=== PATIENT | male | born 2000 | race Caucasian/White ===

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

== ENCOUNTER 2021-02-18 12:27 | Emergency (ER) | payer OTHER, SELFPAY ==
[2021-02-18 12:47] VITALS: BP 122/81; PULSE 63; RESP 12; TEMP 36.8; O2SAT 100
--- NOTE | 2021-02-18 13:04 | ED.DENTAL ---
HPI - Dental/Oral General Chief complaint: Dental/Oral Stated complaint: absess tooth Time Seen by Provider: 02/18/21 13:04 Source: patient, RN notes reviewed and old records reviewed Mode of arrival: ambulatory Limitations: no limitations History of Present Illness HPI Narrative: 20-year-old male who presents to [facility] with complaints of dental pain to the right lower#30 molar on the lower jaw. He states that he has been on antibiotic of Amoxicillin for the past month intermittently for an abscess on the left side of his mouth which has improved. On Thursday patient states that he started having dental pain to gum around #30 tooth on the right lower jaw with swelling. Patient has numerous caries of his teeth with teeth broken and gingivitis, he denies any past history or present history of illicit drug use states he just didn't brush his teeth when he was a kid. Patient has caps to his front upper teeth. MD Complaint: tooth pain Location: Tooth # (#30) Onset (ago): week(s) Duration: constant Severity: moderate Exacerbating factors: chewing Context: history of dental caries and poor dental care Associated symptoms: gum swelling Treatment prior to arrival: other (Tylenol) Related Data Allergies Allergy/AdvReac Type Severity Reaction Status Date / Time No Known Allergies Allergy Verified 12/09/20 11:49 Review of Systems Review of Systems: Narrative: CONSTITUTIONAL: Denies fever, chills, or sweats. EYES: Denies visual changes, redness, or discharge. ENT: Denies rhinorrhea, congestion, sore throat, or otalgia.dental pain with swelling to gum around #30 tooth which is broken off also close to gum line. CARDIOVASCULAR: Denies chest pain, palpitations, or edema. RESPIRATORY: Denies cough or dyspnea. GASTROINTESTINAL: Denies abdominal pain, nausea, vomiting, or diarrhea. GENITOURINARY: Denies dysuria or hematuria. SKIN: Denies rash or itching. MUSCULOSKELETAL: Denies back pain, joint pain, or myalgia. NEUROLOGIC: Denies headache, numbness, or weakness. PSYCHIATRIC: Denies anxiety or depression. All systems reviewed & are unremarkable except as noted in HPI and below PMFSH Past Medical History Medical History (Updated 02/21/21 @ 08:12 by Chinyere Singh NP) ADHD Anxiety Epistaxis Finger fracture, right 5th Surgical History Surgical History No history of previous surgery Family History Family History (Updated 02/21/21 @ 08:07 by Chinyere Singh NP) Other No significant family history Social History Social History (Updated 02/18/21 @ 17:58 by Chinyere Singh NP) Smoking status: Current some day smoker Tobacco type: cigarettes Second hand tobacco smoke exposure: No Alcohol intake: never Alcohol use details: denies Substance use: never Last use: denies use Living arrangements: with family Gender identity (if verbalized by the patient): Male Comments At time of signature, agree with nursing past medical, surgical, social and family history. There is no relevant family history pertinent to the presenting complaint Exam Narrative: Exam Narrative: GENERAL: Well-appearing, well-nourished, and in no acute distress. HEAD: Normocephalic, atraumatic. EYES: PERRLA and EOMI. ENT: Nares clear, no rhinorrhea or epistaxis. Mucous membranes moist.TM's normal with good light reflex, throat pink with no lesions or exudates,no tonsil swelling.Pain swelling to #30 tooth which is broken off close to gum line with numerous caries to other teeth noted also and gingivitis. no drainage noted. NECK: Supple.no lymphadenopathy, no Yoni angina CHEST: Clear to auscultation. No respiratory distress.SAO2 100% on room air HEART: Regular rate and rhythm. No murmur heard. Normal peripheral pulses. ABDOMEN: Soft, nontender, nondistended, normal active bowel sounds. EXTREMITIES: Normal range of motion. No edema. SKIN: Warm, dry, no rash. NEURO: No focal deficit
== END 2021-02-18 13:28 | disposition home or self-care (01) ==
PROVIDERS: Emergency Provider Registered Nurse; PCP Family Medicine Adolescent Medicine
DX: K04.7 Periapical abscess without sinus (principal); K02.9 Dental caries, unspecified; F17.210 Nicotine dependence, cigarettes, uncomplicated
CPT/HCPCS: 99213; G0463

== ENCOUNTER 2022-06-14 18:16 | Emergency (ER) | payer OTHER, SELFPAY ==
--- NOTE | ~2022-06-14 | XR_ITS ---
EXAMINATION: XR chest 2V Exam Date/Time: 06/14/2022 18:40 CDT HISTORY: bone pain decreased breath sounds Comparison: 11/16/2019. RESULT: Lines, tubes, and devices: None. Lungs and pleura: Clear. Cardiomediastinal silhouette: Stable. Other: No acute osseous or upper abdominal finding. IMPRESSION: No acute cardiopulmonary process. Reviewed, dictated and finalized at location K.
[2022-06-14 18:33] VITALS: BP 128/89; PULSE 76; RESP 16; TEMP 36.6; O2SAT 98
--- NOTE | 2022-06-14 18:37 | ED.BACK ---
HPI - Back Pain/Injury General Chief Complaint: Back Pain/Injury Stated Complaint: back pain Time Seen by Provider: 06/14/22 18:29 History of Present Illness HPI Narrative: 21-year-old male here for evaluation of left sided back pain for the past 5 weeks. Patient states the pain came on while he was at work and bent over under a car. Since then the pain has been intermittent in nature, worse with certain positions. He saw his primary care provider who prescribed him an anti-inflammatory with good relief. Patient after taking this medication and states the pain came back. He notes it feels like a bony pain and is possibly worse with deep breaths. Denies any chest pain, shortness of breath, cough, fevers or chills, weight loss. He has been able to walk but just notes that it is painful. Related Data Allergies Allergy/AdvReac Type Severity Reaction Status Date / Time No Known Allergies Allergy Verified 06/14/22 18:36 Review of Systems Review of Systems: Gen: Denies fevers or chills Eyes: Denies eye pain or visual change ENT: Denies congestion Respiratory: Denies shortness of breath or cough CV: Denies chest pain or palpitations GI: Denies abdominal pain nausea, emesis or diarrhea : denies burning, urgency, frequency or hematuria Musculoskeletal: Reports back pain. Neuro: Denies numbness, tingling, weakness or focal weakness Skin: Denies rash Except as documented, all other systems reviewed and negative [facility] [place] Past Medical History Medical History (Updated 06/15/22 @ 00:00 by Chelsea Dias) ADHD Anxiety Epistaxis Finger fracture, right 5th Surgical History Surgical History No history of previous surgery Family History Family History Other No significant family history Social History Social History (Updated 05/22/22 @ 15:04 by Kiana Bustos MA) Smoking status: Current some day smoker Tobacco type: e-cigarettes/vaping Second hand tobacco smoke exposure: No Alcohol intake: never Alcohol use details: denies Substance use: never Substance use type: does not use Last use: denies use Gender identity (if verbalized by the patient): Male Spiritual care concerns: No Agree to blood products: Yes Exam Narrative: APPEARANCE: Well appearing, no pain in distress, well-nourished. Head: Normocephalic and atraumatic. EYES: PERRLA/EOMI, conjunctivae clear NOSE: No nasal drainage EARS: External ear normal in appearance THROAT: Oropharynx is clear. Mucous membranes are moist. NECK: Supple. No adenopathy, no masses. RESPIRATORY: Airway patent, respirations nonlabored. Clear to auscultation bilaterally, no rales, rhonchi, wheezing. CARDIOVASCULAR: Regular rate and rhythm without murmurs, rubs, or gallops. ABDOMINAL: Normoactive bowel sounds. Soft, nontender, nondistended. No rebound tenderness or guarding. MUSCULOSKELETAL: No bony tenderness to palpation along midline of C,T, or L spine. No step-offs or deformities. Full range of motion in thorax. Straight leg raise negative bilaterally. Extremities are warm and well-perfused. Moves all extremities well. No edema. NEURO: Normal speech. No focal neurologic deficits. SKIN: Skin is warm and dry. No rashes. PSYCHIATRIC: Normal affect/mood.. Course Vital Signs Vital signs: Vital Signs Temperature 97.8 F 06/14/22 18:33 Pulse Rate 76 06/14/22 18:33 Respiratory Rate 16 06/14/22 18:33 Blood Pressure 128/89 06/14/22 18:33 Pulse Oximetry 98 06/14/22 18:33 Temperature 97.8 F 06/14/22 18:33 Pulse Rate 76 06/14/22 18:33 Respiratory Rate 16 06/14/22 18:33 Blood Pressure 128/89 06/14/22 18:33 Pulse Oximetry 98 06/14/22 18:33 MDM - Back Pain/Injury MDM Narrative Medical decision making narrative: 21-year-old male here for evaluation of left-sided back pain for the past month and
[2022-06-14] MEDS: ACETAMINOPHEN 325 MG TABLET 650 MG PO (19:21)
[2022-06-14] MEDS: IBUPROFEN 600 MG TABLET PO (19:21)
== END 2022-06-14 20:00 | disposition home or self-care (01) ==
PROVIDERS: Emergency Provider Emergency Medicine; PCP Family Medicine Adolescent Medicine
DX: S39.012A Strain of muscle, fascia and tendon of lower back, initial encounter (principal); F17.290 Nicotine dependence, other tobacco product, uncomplicated; X50.9XXA Other and unspecified overexertion or strenuous movements or postures, initial encounter
CPT/HCPCS: 71046; 99283; A9270

== ENCOUNTER 2022-12-16 22:21 | Emergency (ER) | payer OTHER, SELFPAY ==
[2022-12-16 22:35] VITALS: BP 151/96; PULSE 88; RESP 16; TEMP 37.2; O2SAT 100
[2022-12-17 00:38] VITALS: BP 128/87; PULSE 65; RESP 16; TEMP 36.8; O2SAT 100
--- NOTE | 2022-12-17 00:38 | ED.DENTAL ---
HPI - Dental/Oral General Chief complaint: Dental/Oral Stated complaint: dental pain Time Seen by Provider: 12/17/22 00:15 History of Present Illness HPI Narrative: 22-year-old male reports for acute onset right maxillary dental pain that started at 2300. Patient reports he was grinding his teeth when he felt a sudden onset sharp pain radiating from his tooth up into his face. Patient reports history of multiple dental caries and fractured teeth. Patient does not currently have a dentist. Denies fever, body aches, chills. Denies facial swelling, facial redness, difficulty swallowing, trismus. Tolerating secretions Teeth map: 1. Fractured tooth with surrounding gingival erythema and caries. No fluctuation or induration. No periapical abscess. Related Data Allergies Allergy/AdvReac Type Severity Reaction Status Date / Time No Known Allergies Allergy Verified 12/17/22 00:35 Review of Systems Review of Systems: CONSTITUTIONAL: Denies fever, chills EYES: Denies visual changes, redness, or discharge. ENT: Denies rhinorrhea, congestion, sore throat, or otalgia. CARDIOVASCULAR: Denies chest pain, palpitations, or edema. RESPIRATORY: Denies cough or dyspnea. GASTROINTESTINAL: Denies abdominal pain, nausea, vomiting, or diarrhea. GENITOURINARY: Denies dysuria or hematuria. SKIN: Denies rash or itching. MUSCULOSKELETAL: Denies back pain, joint pain, or myalgia. NEUROLOGIC: Denies headache, numbness, dizziness, or weakness. PSYCHIATRIC: Denies anxiety or depression. [facility] Past Medical History Medical History (Updated 12/17/22 @ 00:48 by Paula De Anda PA-C) ADHD Anxiety Epistaxis Finger fracture, right 5th Surgical History Surgical History No history of previous surgery Family History Family History Other No significant family history Social History Social History Smoking status: Current some day smoker Tobacco type: e-cigarettes/vaping Second hand tobacco smoke exposure: No Alcohol intake: never Alcohol use details: denies Substance use: never Substance use type: does not use Last use: denies use Living arrangements: with family Occupation/Education: occupation Gender identity (if verbalized by the patient): Male Spiritual care concerns: No Agree to blood products: Yes Exam Narrative: GENERAL: Well-appearing, well-nourished, and in no acute distress. Patient resting comfortably in the exam chair. HEAD: Normocephalic, atraumatic. EYES: PERRLA and EOMI. ENT: Nares clear, no rhinorrhea or epistaxis. Mucous membranes moist. Oropharynx without tonsillar hypertrophy exudate or other lesions. Multiple dental caries and fractured teeth. Tooth #11 fractured with surrounding gingival erythema and caries. Tenderness overlying gingiva and with palpation of tooth. No fluctuation or induration throughout gingiva, buccal mucosa. no periapical abscess. Floor of mouth soft, no necrosis. No trismus. Tolerating secretions. No overlying skin changes to face. No maxillary or frontal sinus tenderness. NECK: Supple. No adenopathy or masses. No carotid bruits or JVD CHEST: Clear to auscultation. No respiratory distress. No wheezes rales or rhonchi HEART: Regular rate and rhythm. No murmur heard. Normal peripheral pulses. EXTREMITIES: Normal range of motion. No edema. SKIN: Warm, dry, no rash. NEURO: No focal deficits. Alert and oriented x3. PSYCH: Normal mood and affect. Course Course Emergency Course: Offered patient an infraorbital or alveolar nerve block to which she declined. Vital Signs Vital signs: Vital Signs Temperature 98.9 F 12/16/22 22:35 Pulse Rate 88 12/16/22 22:35 Respiratory Rate 16 12/16/22 22:35 Blood Pressure 151/96 H 12/16/22 22:35 Pulse Oximetry 100 12/16/22 22:35 Oxygen Deliv
[2022-12-17] MEDS: HYDROcodone/acetaminophen (*CRX) 10-325 MG TABLET 1 TAB PO (00:48)
[2022-12-17] MEDS: AMOXICILLIN/CLAVULANATE K 875-125 MG TAB 1 TABLET PO (00:50)
== END 2022-12-17 01:33 | disposition home or self-care (01) ==
PROVIDERS: Emergency Provider Physician Assistant; PCP Family Medicine Adolescent Medicine
DX: K03.81 Cracked tooth (principal); K02.9 Dental caries, unspecified; K04.01 Reversible pulpitis; F41.9 Anxiety disorder, unspecified; F90.9 Attention-deficit hyperactivity disorder, unspecified type; F17.290 Nicotine dependence, other tobacco product, uncomplicated
CPT/HCPCS: 99283; A9270

== ENCOUNTER 2023-05-13 18:51 | Emergency (ER) | payer OTHER, BC, SELFPAY ==
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
[2023-05-13 18:57] VITALS: BP 138/94; PULSE 73; RESP 16; TEMP 37.2; O2SAT 100
== END 2023-05-13 19:22 | disposition home or self-care (01) ==
PROVIDERS: Emergency Provider Nurse Practitioner; PCP Family Medicine Adolescent Medicine
DX: R07.89 Other chest pain (principal); V43.52XA Car driver injured in collision with other type car in traffic accident, initial encounter; F41.9 Anxiety disorder, unspecified; F17.290 Nicotine dependence, other tobacco product, uncomplicated
CPT/HCPCS: 99213; G0463

== ENCOUNTER 2024-03-18 11:55 | Emergency (ER) | payer OTHER, BC, SELFPAY ==
[2024-03-18 12:06] VITALS: BP 126/77; PULSE 65; RESP 16; TEMP 37.2; O2SAT 100
--- NOTE | 2024-03-18 12:17 | ED.GENADULT ---
HPI - General Adult General Chief complaint: Extremity Injury, Lower Stated complaint: Right leg pain Time Seen by Provider: 03/18/24 12:17 Related Data Allergies Allergy/AdvReac Type Severity Reaction Status Date / Time sertraline AdvReac Unknown suicidal Verified 10/06/23 08:43 thoughts [facility] Past Medical History Medical History (Updated 03/19/24 @ 00:01 by Chelsea Dias) ADHD Anxiety Epistaxis Finger fracture, right 5th Surgical History Surgical History No history of previous surgery Family History Family History Other No significant family history Social History Social History Smoking status: Current some day smoker Tobacco type: e-cigarettes/vaping Second hand tobacco smoke exposure: No Alcohol intake: never Alcohol use details: denies Substance use: never Substance use type: does not use Last use: denies use Lack of Transportation: No Lack of Food: Never True Current Housing: I Have Housing Concerned About Future Housing: No Difficulty Paying Gas/Electric Bills: No Difficulty Paying for Meds: No Currently Unemployed: No Education: High School Diploma/GED Difficulty w/ Childcare or Family Care: No Living arrangements: with family Occupation/Education: occupation Gender identity (if verbalized by the patient): Male Spiritual care concerns: No Agree to blood products: Yes Course Vital Signs Vital signs: Vital Signs Temperature 98.9 F 03/18/24 12:06 Pulse Rate 65 03/18/24 12:06 Respiratory Rate 16 03/18/24 12:06 Blood Pressure 126/77 03/18/24 12:06 Pulse Oximetry 100 03/18/24 12:06 Oxygen Delivery Room Air 03/18/24 12:06 Temperature 98.9 F 03/18/24 12:06 Pulse Rate 65 03/18/24 12:06 Respiratory Rate 16 03/18/24 12:06 Blood Pressure 126/77 03/18/24 12:06 Pulse Oximetry 100 03/18/24 12:06 Oxygen Delivery Room Air 03/18/24 12:06 Medical Decision Making Vital Signs Vital Signs: Vital Signs Temperature 98.9 F 03/18/24 12:06 Pulse Rate 65 03/18/24 12:06 Respiratory Rate 16 03/18/24 12:06 Blood Pressure 126/77 03/18/24 12:06 Pulse Oximetry 100 03/18/24 12:06 Oxygen Delivery Room Air 03/18/24 12:06 Temperature 98.9 F 03/18/24 12:06 Pulse Rate 65 03/18/24 12:06 Respiratory Rate 16 03/18/24 12:06 Blood Pressure 126/77 03/18/24 12:06 Pulse Oximetry 100 03/18/24 12:06 Oxygen Delivery Room Air 03/18/24 12:06 Discharge Plan Discharge Clinical Impression: Strain of muscle of posterior right lower leg Patient Disposition: Home, Self-Care Instructions: Muscle Strain (DC) Additional Instructions: for new or worsening symptoms go directly to the emergency department Patient Language: Slovenian Prescriptions: No Action hydroxyzine HCl 25 mg tablet 25 mg PO TID PRN (Reason: anxiety) Qty: 30 0RF venlafaxine 150 mg capsule,extended release 24hr 150 mg PO DAILY Qty: 90 1RF Follow-up/Referrals: Dino Grubbs MD [Primary Care Provider] - Stand Alone Forms: Work/School Release IP
--- NOTE | 2024-03-24 10:11 | ED.GENADULT ---
HPI - General Adult General Chief complaint: Extremity Injury, Lower Stated complaint: Right leg pain Time Seen by Provider: 03/18/24 12:17 Source: patient, RN notes reviewed and old records reviewed Mode of arrival: ambulatory Limitations: no limitations History of Present Illness HPI narrative: 23-year-old male to Express Care for complaint right calf pain for 3 days. Patient endorses skateboarding 3 without injury. Patient is concerned that he may a muscle. Patient endorses increased tension and discomfort with flexion. Patient denies prior injury, pertinent medical history, numbness, tingling. Patient endorses increased discomfort with activity, decreases at rest. Patient has not attempted to treat at home. Related Data Allergies Allergy/AdvReac Type Severity Reaction Status Date / Time sertraline AdvReac Unknown suicidal Verified 10/06/23 08:43 thoughts Review of Systems Review of Systems: All systems reviewed & are unremarkable except as noted in HPI and below Constitutional: Constitutional: Reports no additional constitutional complaints Eyes: Eyes: Reports no additional eye complaints ENT: Reports system reviewed and no additional complaints, except as documented Cardiovascular: Cardiovascular: Reports no additional cardiovascular complaints, Denies chest pain and Denies dyspnea Respiratory: Respiratory: Reports no additional respiratory complaints, Denies cough and Denies dyspnea Musculoskeletal: Musculoskeletal: Reports as per HPI and Reports other ( right calf pain) Neurologic: Reports system reviewed and no additional complaints, except as documented Psychiatric: Psychiatric: Reports no additional psychiatric complaints PMFSH Past Medical History Medical History ADHD Anxiety Epistaxis Finger fracture, right 5th Surgical History Surgical History No history of previous surgery Family History Family History Other No significant family history Social History Social History Smoking status: Current some day smoker Tobacco type: e-cigarettes/vaping Second hand tobacco smoke exposure: No Alcohol intake: never Alcohol use details: denies Substance use: never Substance use type: does not use Last use: denies use Lack of Transportation: No Lack of Food: Never True Current Housing: I Have Housing Concerned About Future Housing: No Difficulty Paying Gas/Electric Bills: No Difficulty Paying for Meds: No Currently Unemployed: No Education: High School Diploma/GED Difficulty w/ Childcare or Family Care: No Living arrangements: with family Occupation/Education: occupation Gender identity (if verbalized by the patient): Male Spiritual care concerns: No Agree to blood products: Yes Comments At the time of my signature, I reviewed and agree with the nursing past medical, surgical, social, and family history. There is no relevant family history pertinent to the patient complaint. Exam Const: General: cooperative, healthy appearing, comfortable, no acute distress, alert and well nourished Nutritional Appearance: well nourished Orientation/consciousness: patient oriented x3 Limitations: no limitations HENMT: Head: normal to inspection Ears: external ears normal Face/Nose/Sinus: Normal external nose present, Normal nares present, normal facial exam, No erythema and No edema Face and sinus: normal facial exam, no erythema and no edema Mouth: Yes Normal oral and palatal mucosa present Eyes: General: appearance normal, both eyes and all related structures Neck: Neck: normal visual inspection, full ROM and no meningeal signs Chest: Chest palpation & inspection: normal inspection of the chest Resp: [facility]
== END 2024-03-18 12:37 | disposition home or self-care (01) ==
PROVIDERS: Emergency Provider Nurse Practitioner Family; PCP Family Medicine Adolescent Medicine
DX: S86.111A Strain of other muscle(s) and tendon(s) of posterior muscle group at lower leg level, right leg, initial encounter (principal); X58.XXXA Exposure to other specified factors, initial encounter; F17.290 Nicotine dependence, other tobacco product, uncomplicated
CPT/HCPCS: 99212; G0463

== ENCOUNTER 2024-06-16 11:38 | Emergency (ER) | payer SELFPAY ==
[2024-06-16 11:44] VITALS: BP 115/63; PULSE 77; RESP 20; TEMP 36.6; O2SAT 98
--- NOTE | 2024-06-16 12:24 | ED.SKABFB ---
HPI - Skin/Abscess/Foreign Bdy General Chief complaint: Skin/Abscess/Foreign Body Stated complaint: Rash on side up to front chest Source: patient Mode of arrival: ambulatory Limitations: no limitations History of Present Illness HPI narrative: 23-year-old male presented for complaint of rash spreading from the right hip to the left over the last 3 days. in reports a change in soap. Denies itching, pain or drainage to the lesions. Denies lip, tongue, or throat swelling, shortness of breath or wheezing. Denies recent illness. Denies changes to detergent, lotion, or any other exposures. No one else in the house or any contacts with similar symptoms. Related Data Allergies Allergy/AdvReac Type Severity Reaction Status Date / Time sertraline AdvReac Unknown suicidal Verified 04/28/24 10:55 thoughts Review of Systems Review of Systems: CONSTITUTIONAL: Denies body aches, fever, chills, or sweats. EYES: Denies visual changes, redness, or discharge. ENT: Denies rhinorrhea, congestion CARDIOVASCULAR: Denies chest pain, palpitations, or edema. RESPIRATORY: Denies cough or dyspnea. GASTROINTESTINAL: Denies abdominal pain, nausea, vomiting, or diarrhea. SKIN: reports rash MUSCULOSKELETAL: Denies back pain, joint pain, or myalgia. NEUROLOGIC: Denies headache PMFSH Past Medical History Medical History ADHD Anxiety Epistaxis Finger fracture, right 5th Surgical History Surgical History No history of previous surgery Family History Family History Other No significant family history Social History Social History Smoking status: Current some day smoker Tobacco type: e-cigarettes/vaping Second hand tobacco smoke exposure: No Alcohol intake: never Alcohol use details: denies Substance use: never Substance use type: does not use Last use: denies use Lack of Transportation: No Lack of Food: Never True Current Housing: I Have Housing Concerned About Future Housing: No Difficulty Paying Gas/Electric Bills: No Difficulty Paying for Meds: No Currently Unemployed: No Education: High School Diploma/GED Difficulty w/ Childcare or Family Care: No Living arrangements: with family Occupation/Education: occupation Gender identity (if verbalized by the patient): Male Spiritual care concerns: No Agree to blood products: Yes Comments At time of signature, I have reviewed and agree with nursing past medical, surgical, social and family history unless otherwise noted. Please see nursing chart for further information. There is no relevant family history pertinent to the presenting complaint Exam Narrative: GENERAL: Well-appearing HEAD: Normocephalic, atraumatic. EYES: conjunctivae clear, and EOMI. ENT: Mucous membranes moist. Oropharynx without edema, erythema or lesions. NECK: Supple. No lymphadenopathy CHEST: Clear to auscultation. HEART: Regular rate and rhythm. SKIN: Warm, dry. scattered erythematous slightly raised round lesions of various sizes noted to torso only. No drainage, nontender. NEURO: Alert and oriented x3. Course Course Emergency Course: Patient is aware of diagnosis, understands and agrees to treatment plan. Anticipatory guidance given. Patient agrees to follow-up as directed and is aware of reasons to seek care at the emergency department. Portions of this record may have been created with voice recognition software Level of Care: Express Care Visit Vital Signs Vital signs: Vital Signs Temperature 97.9 F 06/16/24 11:44 Pulse Rate 77 06/16/24 11:44 Respiratory Rate 20 06/16/24 11:44 Blood Pressure 115/63 06/16/24 11:44 Pulse Oximetry 98 06/16/24 11:44 Oxygen Delivery Room Air 06/16/24 11:44
== END 2024-06-16 12:31 | disposition home or self-care (01) ==
PROVIDERS: Emergency Provider Nurse Practitioner Family; PCP Family Medicine Adolescent Medicine
DX: L30.9 Dermatitis, unspecified (principal); F17.290 Nicotine dependence, other tobacco product, uncomplicated
CPT/HCPCS: 99213; G0463

== ENCOUNTER 2024-12-09 15:58 | Emergency (ER) | payer BC, SELFPAY ==
[2024-12-09 16:08] VITALS: BP 130/90; PULSE 108; RESP 16; TEMP 36.7; O2SAT 99
--- NOTE | 2024-12-09 16:39 | ED_ITS ---
HPI - Male Genitourinary General Chief complaint: Urogenital-Male Stated complaint: spot on penis Time Seen by Provider: 12/09/24 16:01 Source: patient Mode of arrival: ambulatory Limitations: no limitations History of Present Illness HPI Narrative: Volodymyr is a 24-year-old male patient presenting to the clinic today with complaints of a sore on his left scrotum that he knows 2 days ago. He reports that the area is nonpainful and nontender. It is slightly red and irritated. Denies any history of HSV and denies any concern for any sexually transmitted infections. No penile discharge or penile lesions. Related Data Home Medications ?Medication ?Instructions ?Recorded ?Confirmed ?Last Taken ?Type bupropion HCl 150 mg 24 hr tablet, mg PO 12/09/24 Unknown History extended release mirtazapine 15 mg tablet mg 12/09/24 Unknown History quetiapine 50 mg tablet,extended mg PO 12/09/24 Unknown History release 24 hr venlafaxine 75 mg capsule,extended mg PO 12/09/24 Unknown History release 24 hr Allergies Allergy/AdvReac Type Severity Reaction Status Date / Time sertraline AdvReac Unknown suicidal Verified 12/09/24 16:03 thoughts Review of Systems Review of Systems: Pertinent positives per HPI. Patient denies any fever, chills, rash, headache, visual changes, dizziness, cough, runny nose, sore throat, shortness of breath, chest pain, palpitations, nausea, vomiting, diarrhea, constipation, abdominal pain, or any urinary issues. [facility] Past Medical History Medical History Epistaxis ADHD Finger fracture, right 5th Anxiety Surgical History Surgical History No history of previous surgery Family History Family History Other No significant family history Social History Social History Smoking status: Current some day smoker Tobacco type: e-cigarettes/vaping Second hand tobacco smoke exposure: No Alcohol intake: never Alcohol use details: denies Substance use: never Substance use type: does not use Last use: denies use Lack of Transportation: No Lack of Food: Never True Current Housing: I Have Housing Concerned About Future Housing: No Difficulty Paying Gas/Electric Bills: No Difficulty Paying for Meds: No Currently Unemployed: No Education: High School Diploma/GED Difficulty w/ Childcare or Family Care: No Living arrangements: with family Occupation/Education: occupation Gender identity (if verbalized by the patient): Male Spiritual care concerns: No Agree to blood products: Yes Comments At the time of my signature, I reviewed and agree with the nursing past medical, surgical, social, and family history. There is no relevant family history pertinent to the patient complaint. Exam Narrative: General: Well-developed, well nourished, in no apparent distress Head: Normocephalic, atraumatic. Cardio: Regular rate and rhythm, s1 and s2 normal, no murmur appreciated. Resp: Clear to auscultation bilaterally, no rhonchi, rales, wheezing or rubs. Integumentary: [place], warm, and dry, open ulcerated sore to the left scrotum without induration, nontender to palpation, no erythematous base or vesicular lesions noted. Course Course Emergency Course: Portions of this record may have been created with voice recognition software. Level of Care: Express Care Visit Vital Signs Vital signs: Vital Signs Temperature 36.7 C 12/09/24 16:08 Pulse Rate 108 H 12/09/24 16:08 Respiratory Rate 16 12/09/24 16:08 Blood Pressure 130/90 12/09/24 16:08 Pulse Oximetry 99 12/09/24 16:08 Oxygen Delivery Room Air 12/09/24 16:08 Temperature 36.7 C 12/09/24 16:08 Pulse Rate 108 H 12/09/24 16:08 Respiratory Rate 16 12/09/24 16:08 Blood Pressure 130/90 12/09/24 16:08 Pulse Oximetry 99 12/09/24 16:08 Oxygen Delivery Room Air 12/09/24 16:08 Vital signs reviewed MDM - Male Genitourinary MDM Narrative Medical decision making narrative: At the time of visit patient is resting comfortably on the exam table. Patient appears to be nontoxic. Labs: HSV culture testing was sent to the lab Plan: I suspect patient has an open wound/ulceration to the scrotum. Prescription for mupirocin cream and acyclovir was sent to the pharmacy. Patient denies any concern for STIs. Supportive measures were discussed with the patient and they voiced understanding discharge instructions and agrees to treatment plan. Return precautions reviewed Differential Diagnosis Differential diagnosis: Likely urinary tract infection, priapism, urethritis, epididymitis, genital herpes simplex, prostatitis, acute retention of urine and inguinal hernia Lab Data Labs: Lab Results 12/09/24 Range/Units 16:15 Herpes Virus Source Pending Herpes Simplex Culture Pending Discharge Plan Discharge Clinical Impression: Ulcer of scrotum Patient Disposition: Home, Self-Care Condition: Stable Instructions: Antibiotic Form Additional Instructions: Take acyclovir as prescribed Apply mupirocin cream to the affected area twice daily x7 days Leave bandage on for 24 hours then may remove and apply band aide covering as needed. Keep wound clean and dry Watch for signs and symptoms of infection- redness, streaking, swelling, purulent discharge, or increase in pain. Follow up with your PCP Patient Language: Bhutanese Prescriptions: New mupirocin [Centany] 2 % ointment 1 applic topical BID 7 Days Qty: 22 0RF acyclovir 400 mg tablet 400 mg PO TID 7 Days Qty: 21 0RF No Action venlafaxine 75 mg capsule,extended release 24hr PO mirtazapine 15 mg tablet bupropion HCl 150 mg tablet extended release 24 hr PO quetiapine 50 mg tablet extended release 24 hr PO hydroxyzine HCl 25 mg tablet 25 mg PO TID PRN (Reason: anxiety) Qty: 30 2RF Follow-up/Referrals: Stephanie Gregory APRN [Primary Care Provider] - Time of Disposition: 16:19 Quality NIHSS Nursing Documentation ED NIHSS nursing documentation: reviewed/agree
== END 2024-12-09 16:20 | disposition home or self-care (01) ==
PROVIDERS: Emergency Provider Nurse Practitioner Family; PCP Nurse Practitioner Family
DX: N50.89 Other specified disorders of the male genital organs (principal); F41.9 Anxiety disorder, unspecified; F17.290 Nicotine dependence, other tobacco product, uncomplicated
CPT/HCPCS: 87140; 87255; 99213; G0463

== ENCOUNTER 2025-07-04 09:03 | Emergency (ER) | payer BC, SELFPAY ==
[2025-07-04 09:07] VITALS: BP 140/96; PULSE 76; RESP 16; TEMP 36.7; O2SAT 99
--- NOTE | 2025-07-04 09:21 | ED_ITS ---
HPI - General Adult General Chief complaint: Dental/Oral Stated complaint: dental abscess Time Seen by Provider: 07/04/25 09:09 History of Present Illness HPI narrative: 24-year-old male presents to the emergency department for evaluation for right incisor dental pain. Patient does have caps. Patient states pain started about a.m. a few days ago. Patient has not taken anything for pain control. Patient does have prior history of epistaxis, ADHD and anxiety. Patient also has history of dental abscess and dental caries. Related Data Home Medications ?Medication ?Instructions ?Recorded ?Confirmed ?Last Taken ?Type bupropion HCl 150 mg 24 hr tablet, mg PO 12/09/24 Unk nown History extended release mirtazapine 15 mg tablet mg 12/09/24 Unknown History quetiapine 50 mg tablet,extended mg PO 12/09/24 Unkno wn History release 24 hr venlafaxine 75 mg capsule,extended mg PO 12/09/24 Unk nown History release 24 hr Allergies Allergy/AdvReac Type Severity Reaction Status Date / Time sertraline AdvReac Unknown suicidal Verified 07/04/25 09:15 thoughts Review of Systems Review of Systems: All systems reviewed & are unremarkable except as noted in HPI and below PMFSH Past Medical History Medical History (Updated 07/04/25 @ 09:24 by Donald Hampton MD) Epistaxis ADHD Finger fracture, right 5th Anxiety Surgical History Surgical History No history of previous surgery Family History Family History Other No significant family history Social History Social History Smoking status: Current some day smoker Tobacco type: e-cigarettes/vaping Second hand tobacco smoke exposure: No Alcohol intake: never Alcohol use details: denies Substance use: never Substance use type: does not use Last use: denies use Lack of Transportation: No Lack of Food: Never True Current Housing: I Have Housing Concerned About Future Housing: No Difficulty Paying Gas/Electric Bills: No Difficulty Paying for Meds: No Currently Unemployed: No Education: High School Diploma/GED Difficulty w/ Childcare or Family Care: No Living arrangements: with family Occupation/Education: occupation Gender identity (if verbalized by the patient): Male Spiritual care concerns: No Agree to blood products: Yes Exam Narrative: APPEARANCE: Well appearing, no pain, no distress, well-nourished. HEAD: normocephalic, atraumatic. EYES: PERRLA/EOMI, conjunctivae clear. NOSE: Normal no drainage EARS:TMS clear with good light reflex. THROAT: Pharynx clear, no exudate. Mouth: No dental abscess amenable to drainage, no trismus NECK: Supple. No adenopathy, no masses. RESPIRATORY: Airway patent, respirations nonlabored. Clear to auscultation bilaterally, no rales, rhonchi, wheezing. CARDIOVASCULAR: Regular rate and rhythm without murmurs rubs or gallops. ABDOMINAL: Soft, nontender, nondistended, normal bowel sounds MUSCULOSKELETAL: Moves all extremities. Strength/ROM intact, No edema, No calf tenderness. NEURO: Alert. Cranial nerves II through XII intact. Good gait. Good coordination SKIN: Warm, dry. Normal Color Course Vital Signs Vital signs: Vital Signs Temperature 98.1 F 07/04/25 09:07 Pulse Rate 76 07/04/25 09:07 Respiratory Rate 16 07/04/25 09:07 Blood Pressure 140/96 H 07/04/25 09:07 Pulse Oximetry 99 07/04/25 09:07 Oxygen Delivery Room Air 07/04/25 09:07 Temperature 98.1 F 07/04/25 09:07 Pulse Rate 76 07/04/25 09:07 Respiratory Rate 16 07/04/25 09:07 Blood Pressure 140/96 H 07/04/25 09:07 Pulse Oximetry 99 07/04/25 09:07 Oxygen Delivery Room Air 07/04/25 09:07 Medical Decision Making [facility] Narrative Medical decision making narrative: 24-year-old male presents emergency department for evaluation for dental pain. No abscess amenable to drainage noted on the exam. Patient was treated with IM Toradol, p.o. Hazelwood and p.o. Augmentin. Patient was updated results of workup and importance close follow-up with his dentist. Patient was also updated on the treatment plan for home including antibiotics and medications for pain control. All questions concerns were addressed patient was well-appearing at time of discharge. Differential Diagnosis Differential Diagnosis: Dental fracture, dental abscess, dental kevon Vital Signs Vital Signs: Vital Signs Temperature 98.1 F 07/04/25 09:07 Pulse Rate 76 07/04/25 09:07 Respiratory Rate 16 07/04/25 09:07 Blood Pressure 140/96 H 07/04/25 09:07 Pulse Oximetry 99 07/04/25 09:07 Oxygen Delivery Room Air 07/04/25 09:07 Temperature 98.1 F 07/04/25 09:07 Pulse Rate 76 07/04/25 09:07 Respiratory Rate 16 07/04/25 09:07 Blood Pressure 140/96 H 07/04/25 09:07 Pulse Oximetry 99 07/04/25 09:07 Oxygen Delivery Room Air 07/04/25 09:07 Discharge Plan Discharge Clinical Impression: Pain, dental Patient Disposition: Home Condition: Stable Instructions: Antibiotic Form, Toothache (ED) Additional Instructions: Antibiotic as directed until completed. Ibuprofen for pain control, [place]elwood as needed for additional pain control. Have close follow-up with your dentist. If you have any worsening symptoms then please call or return to the emergency department. Patient Language: Kiswahili Prescriptions: New hydrocodone-acetaminophen 5-325 mg tablet 1 tablet PO Q12H PRN (Reason: pain) Qty: 14 0RF amoxicillin-pot clavulanate 875-125 mg tablet 1 tablet PO Q12H 7 Days Qty: 14 0RF No Action venlafaxine 75 mg capsule,extended release 24hr PO mirtazapine 15 mg tablet bupropion HCl 150 mg tablet extended release 24 hr PO quetiapine 50 mg tablet extended release 24 hr PO mupirocin [Centany] 2 % ointment 1 applic topical BID 7 Days Qty: 22 0RF acyclovir 400 mg tablet 400 mg PO TID 7 Days Qty: 21 0RF hydroxyzine HCl 25 mg tablet 25 mg PO TID PRN (Reason: anxiety) Qty: 30 2RF Follow-up/Referrals: Stephanie Gregory APRN [Primary Care Provider, Family Practice] Stand Alone Forms: Work/School Release IP
--- OUTSIDE RECORDS SUMMARY | 2025-07-04 09:31 | XMS_ITS | Clinical Summary ---
Author Organization [facility] Address [address] [place] [address] Care Team Providers Care Planning Lead Name Role Phone Unavailable Primary Care Provider Unavailabl e Source Comments [facility],non-owned Affiliates and Associated Physician Practices is amultiple site organization consisting of ambulatory clinics and hospital sitesin [place] and [place]. This disclosure is being madepursuant to the Care Everywhere program and may not contain all information available regarding this patient. Last updated 18.[facility] Allergies No known active allergies Immunizations Immunization Administration Dates Next Due MENINGOCOCCAL ACWY (MCV4P) VAC IM 07/08/2019 Social History Tobacco Use Types Packs/Day Years Used Date Smoking Tobacco: Never Assessed Sex and Gender Information Value Date Recorded Sex Assigned at Not on file Legal Sex Male 5:10 PM [employer] Gender Identity Not on file Sexual Orientation Not on file Plan of Treatment Health Maintenance Due Date Last Done Comments HIV SCREENING 2016 HPV VACCINE (1 - Male 3-dose series) 2016 MENINGOCOCCAL (Group B) VACC INE SHARED DECISION-MAKING (1 of 2 - Standard) 2017 HEPATITIS C SCREENING 07/26/2019 DTAP/TDAP/TD VACCINES (1 - Tdap) 2020 HEPATITIS B VACCINE (1 of 3 - 19+ 3-dose series) 2020 DEPRESSION SCREENING 10/05/2024 COVID-19 VACCINE (1 - 2023-2 5 season) 2025 INFLUENZA VACCINE (#1) 2025 ZOSTER VACCINE (1 of 2) 2051 MENINGOCOCCAL GROUPS A/C/Y/W VACCINE Completed 07/08/2019 HIB VACCINE Aged Out No longer eligi ble based on patient's age to complete this topic PNEUMOCOCCAL VACCINE Aged Out No long er eligible based on patient's age to complete this topic Insurance [facility] Address: [facility] [id number] [place] [address]
[2025-07-04] MEDS: HYDROcodone/acetaminophen (*CRX) 5-325 MG TABLET 1 TAB PO (09:32)
[2025-07-04] MEDS: KETOROLAC 30 MG/ML VIAL (*BKC) IM (09:32)
--- OUTSIDE RECORDS SUMMARY | 2025-07-04 09:32 | XMS_ITS | Patient Health Record ---
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 schedule and importance of compliance. Cont counseling -Assessment and treatment plan reviewed with patient. -Compliance with treatment plan importance discussed. -Discussed the risks/benefits of this medication -Discussed medication side effects. -Contact office if symptoms worsen. -Discussed that it can take up to 6-8 weeks to see full therapeutic effects of psychotropic medications. -Crisis prevention hotline 988. 05/17/2025 Other Decrease mirtazpaine to 7.5mg for sleep, appetite Patient educated on all medications including potential benefits, side effects, risks. Educated on proper dosing schedule and importance of compliance. -Assessment and treatment plan reviewed with patient. -Compliance with treatment plan importance discussed. -Discussed the risks/benefits of this medication -Discussed medication side effects. -Contact office if symptoms worsen. -Discussed that it can take up to 6-8 weeks to see full therapeutic effects of psychotropic medications. -Crisis prevention [facility] 988. 06/28/2025 Other Discontinue mirtazapine due to ineffectivenes s - continue current medications, pt reports hydroxyzine helps with insomnia when needed. Patient educated on all medications including potential benefits, side effects, risks. Educated on proper dosing schedule and importance of compliance. Cont therapy with Mona -Assessment and treatment plan reviewed with patient. -Compliance with treatment plan importance discussed. -Discussed the risks/benefits of this medication -Discussed medication side effects. -Contact office if symptoms worsen. -Discussed that it can take up to 6-8 weeks to see full therapeutic effects of psychotropic medications. -Crisis prevention [facility] 98. Plan Of Treatment Pending Test Test Name Order Date UDT 09/05/2024 Next Appt Details Provider Name:[place]ona [place], 07/25/2025 10:00:00 AM, [address], [address], [id number], Provider Name:Jessi gonzales, 07/25/2025 11:30:00 AM, [address], [facility] [address], [place], [address], Insurance Providers Payer Name Payer Address Payer Phone Subscriber Number Group Number Insured Name Patient Relationship to Insured Coverage Start Date Coverage End Date [facility] [address] [place] [phone] [id number] OSWALDO HUMPHREYS Self - patient is the insured Medical (General) History Medical History History ICD Code abdominal aortic aneurysm: No atrial fibrillation: No chronic fatigue syndrome: No essential tremor: No hyperlipidemia: No hypertension: No Parkinson's disease: No restless leg syndrome: No stroke: No subdural hematoma: No type 1 diabetes mellitus: No type 2 diabetes mellitus: No vitamin B12 deficiency: No vitamin D deficiency: No Past Psychiatric History: Anxiety Disord er,PTSD,Major Depressive Episode undefined Surgical History Surgery Date(Month/Year) dental implants
--- OUTSIDE RECORDS SUMMARY | 2025-07-04 10:03 | XMS_ITS | Clinical Summary ---
Author Organization [facility] Address [address] [place] [address] Care Team Providers Care Valve Inspector Name Role Phone Unavailable Primary Care Provider Unavailabl e Source Comments [facility],non-owned Affiliates and Associated Physician Practices is amultiple site organization consisting of ambulatory clinics and hospital sitesin [place], [place], [place] and [place]. This disclosure is being madepursuant to the Care Everywhere program and may not contain all information available regarding this patient. Last updated 18.[facility] Allergies No known active allergies Immunizations Immunization Administration Dates Next Due MENINGOCOCCAL ACWY (MCV4P) VAC IM 07/08/2019 Social History Tobacco Use Types Packs/Day Years Used Date Smoking Tobacco: Never Assessed Sex and Gender Information Value Date Recorded Sex Assigned at Not on file Legal Sex Male 5:10 PM [employer] Gender Identity Not on file Sexual Orientation [...] patient's age to complete this topic Insurance [facility] Address: [facility] [address] [place] [address]
== END 2025-07-04 10:08 | disposition home or self-care (01) ==
LOC: ANHED 09:27
PROVIDERS: Emergency Provider Emergency Medicine; PCP Nurse Practitioner Family
DX: K08.89 Other specified disorders of teeth and supporting structures (principal); F17.210 Nicotine dependence, cigarettes, uncomplicated
CPT/HCPCS: 96372; 99283; A9270; J1885